=== PATIENT | female | born 2000 | race Caucasian/White ===

== ENCOUNTER 2018-11-07 06:46 | Outpatient (CLI) | payer OTHER ==
--- NOTE | 2018-11-07 07:34 | ULT ---
THYROID ULTRASOUND: Date: 11/07/18 CLINICAL INDICATION: Hypothyroidism. FINDINGS: There is diffuse replacement of each thyroid lobe by cystic nodules, conglomerate in morphology, chiqui ng discrete size measurements difficult to obtain. The length of the right thyroid lobe is 5.4 cm and left thyroid lobe is 5.0 cm. Isthmus is approximately 2.0 mm in thickness. 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 POS: [facility]
== END 2018-11-07 06:47 | disposition home or self-care (01) ==
LOC: BICULT 06:46
PROVIDERS: ATTEND Family Medicine
DX: R94.6 Abnormal results of thyroid function studies (principal); E04.2 Nontoxic multinodular goiter
CPT/HCPCS: 76536